=== PATIENT | female | born 1935 | race Caucasian/White ===

== ENCOUNTER 2022-12-16 15:45 | Inpatient (IN) ==
[2022-12-16 17:14] LABS: Basophils % 0.2 % (0.0-0.8); Hematocrit 43.3 VOL% (35.7-47.0); Hemoglobin 14.1 GM/DL (12.0-16.0); Immature Granulocytes % 0.4 %; Immature Granulocytes Absolute 0.02 #; Lymphocytes # 0.5 10*3/uL (1.4-4.0); Lymphocytes % 10.5 % (21.3-54.2); Mean Corpuscular HGB Conc 32.6 GM/DL (32-36); Mean Corpuscular Volume 89.3 FL (87-102); Mean Platelet Volume 10.6 FL (9.6-12.0); Monocytes # 0.5 10*3/uL (0.11-0.8); Neutrophils % 78.9 % (38.7-73.9); Platelet Count 77 T/CUMM (130-400); Red Blood Count 4.85 MC/CUMM (3.8-5.5); Red Cell Distribution Width 14.5 % (9.3-17.3); White Blood Count 4.68 T/CUMM (4-12)
[2022-12-16] MEDS ORDERED: ONDANSETRON 4 MG/2 ML VIAL IV STA (17:16)
[2022-12-16 17:38] LABS: Albumin 3.2 G/DL (3.4-5.0); Bilirubin,Total 1.5 MG/DL (0.20-1.00); Calcium 8.7 MG/DL (8.5-10.1); Osmolality,Calculated 276.7 MOS/KG (273-304); Potassium 3.3 MMOL/L (3.5-5.1); Total Protein 6.9 G/DL (6.4-8.2)
[2022-12-16] MEDS ORDERED: cefTRIAXone 1,000 MG in SODIUM CHLORIDE 0.9% 100 ML IV STA (17:41)
[2022-12-16] MEDS ORDERED: AZITHROMYCIN INJ 500 MG in SODIUM CHLORIDE 0.9% 250 ML IV STA (17:41)
[2022-12-16 18:04] LABS: INR 1.1; PT Patient Result 12.1 SECS (10.1-12.1); Partial Thromboplastin Time 30.8 SECS (23.7-32.9)
[2022-12-16 18:52] LABS: Bacteria,Urine Many /HPF (Few); Hyaline Casts,Urine 26 /LPF (0-3); Mucus,Urine Occasional /LPF (Occasional); RBC,Urine 4 /HPF (0-4); Squamous Epithelial Cell,Urine Occasional /HPF (0-10)
[2022-12-16 18:53] LABS: Bilirubin,Urine Negative (Negative); Blood, Urine Negative (Negative); Glucose,Urine (UA) Negative (Negative); Ketones,Urine Negative (Negative); Nitrite,Urine Negative (Negative); Protein,Urine Negative (Negative); Urine Appearance Clear (Clear); Urine Color Yellow (Yellow); Urine Specific Gravity 1.015 (1.001-1.035)
[2022-12-16] MEDS ORDERED: FUROSEMIDE 40 MG/4 ML VIAL IV STA ×2 (19:47→20:51)
[2022-12-16] MEDS ORDERED: POTASSIUM CHLORIDE 20 MEQ TABLET PO STA (19:47)
[2022-12-16] MEDS ORDERED: hydrALAZINE 20 MG/1 ML VIAL IV PRN (20:06)
[2022-12-16] MEDS ORDERED: ONDANSETRON 4 MG/2 ML VIAL IV PRN (20:06)
[2022-12-16] MEDS ORDERED: ACETAMINOPHEN 325 MG TABLET PO PRN (20:06)
[2022-12-16] MEDS ORDERED: ALBUTEROL 2.5 MG/3 ML NEB RESP TX PRN (20:06)
[2022-12-16] MEDS ORDERED: SIMETHICONE CHEW 125 MG TABLET PO PRN (20:06)
[2022-12-16] MEDS ORDERED: GLUCAGON 1 MG VIAL IM PRN (20:16)
[2022-12-16] MEDS ORDERED: DEXTROSE 10% 250 ML BAG IV PRN (20:16)
[2022-12-16] MEDS ORDERED: FUROSEMIDE 100 MG/10 ML VIAL ONE (21:01)
[2022-12-16 21:19] LABS: Arterial Base Excess iSTAT 3 MMOL/L (-2.5-2.5); Arterial Bicarbonate iSTAT 30.6 MMOL/L (20-26); Arterial O2 Saturation iSTAT 92 % (95-100); Arterial PCO2 iSTAT 59 MM HG (35-48); Arterial PO2 iSTAT 72 MM HG (80-95); Arterial Total CO2 iSTAT 32 MMO/L (23-27); Arterial pH iSTAT 7.321 (7.35-7.45)
[2022-12-16] MEDS: DOCUSATE SODIUM 100 MG CAPSULE PO SCH (22:32)
[2022-12-16] MEDS: LACTULOSE 20 GM/30 ML UDCUP PO SCH (22:32)
[2022-12-16] MEDS ORDERED: POTASSIUM CHLORIDE 20 MEQ TABLET PO ONE (23:00)
[2022-12-17 04:28] LABS: Arterial Base Excess iSTAT 6 MMOL/L (-2.5-2.5); Arterial Bicarbonate iSTAT 31.6 MMOL/L (20-26); Arterial O2 Saturation iSTAT 95 % (95-100); Arterial PCO2 iSTAT 51 MM HG (35-48); Arterial PO2 iSTAT 79 MM HG (80-95); Arterial Total CO2 iSTAT 33 MMO/L (23-27); Arterial pH iSTAT 7.399 (7.35-7.45)
[2022-12-17 06:33] LABS: Eosinophils % 0.2 % (0.00-10.9); Hematocrit 39.4 VOL% (35.7-47.0); Hemoglobin 12.7 GM/DL (12.0-16.0); Immature Granulocytes % 0.4 %; Immature Granulocytes Absolute 0.02 #; Lymphocytes # 0.7 10*3/uL (1.4-4.0); Lymphocytes % 13.9 % (21.3-54.2); Mean Corpuscular HGB Conc 32.2 GM/DL (32-36); Mean Corpuscular Volume 90.8 FL (87-102); Mean Platelet Volume 10.4 FL (9.6-12.0); Monocytes # 0.6 10*3/uL (0.11-0.8); Monocytes % 11.6 % (1.7-12.7); Neutrophils % 73.9 % (38.7-73.9); Red Blood Count 4.34 MC/CUMM (3.8-5.5); Red Cell Distribution Width 14.7 % (9.3-17.3); White Blood Count 5.02 T/CUMM (4-12)
[2022-12-17 06:35] LABS: Platelet Count 75 T/CUMM (130-400)
[2022-12-17 06:38] LABS: INR 1.1; PT Patient Result 12.5 SECS (10.1-12.1)
[2022-12-17 06:53] LABS: Hypochromia Slight; Microcytosis 1+; Ovalocytes Few; Platelet Estimate Decreased
[2022-12-17 07:05] LABS: Albumin 2.8 G/DL (3.4-5.0); Bilirubin,Direct 0.64 MG/DL (0.0-0.20); Bilirubin,Indirect 0.4 MG/DL (0.0-1.0); Calcium 8.3 MG/DL (8.5-10.1); Osmolality,Calculated 278.4 MOS/KG (273-304); Potassium 3.9 MMOL/L (3.5-5.1)
[2022-12-17] MEDS: INSULIN REGULAR 100 UNIT/ML SUBCUT SCH ×2 (10:11→17:33)
[2022-12-17] MEDS ORDERED: GLUCAGON 1 MG VIAL IM PRN (10:37)
[2022-12-17] MEDS ORDERED: DEXTROSE 50% 25 GM/50 ML VIAL IV PRN (10:37)
[2022-12-17] MEDS: OXYBUTYNIN XL 10 MG TABLET PO SCH (10:42)
[2022-12-17] MEDS: PANTOPRAZOLE 40 MG TABLET PO SCH (10:42)
[2022-12-17] MEDS: rOPINIRole 0.25 MG TABLET PO SCH ×2 (10:42→21:49)
[2022-12-17] MEDS: DOCUSATE SODIUM 100 MG CAPSULE PO SCH ×2 (10:42→21:49)
[2022-12-17] MEDS: DILTIAZEM 60 MG TABLET PO SCH ×2 (10:43→21:49)
[2022-12-17] MEDS: ESTRADIOL 1 MG TABLET PO SCH (10:43)
[2022-12-17] MEDS: SPIRONOLACTONE 25 MG TABLET PO SCH (10:43)
[2022-12-17] MEDS: LACTULOSE 20 GM/30 ML UDCUP PO SCH ×2 (10:43→21:49)
[2022-12-17 11:29] LABS: RBC,Peritoneal Fluid 23112 T/CUMM
[2022-12-17 15:03] LABS: Hepatitis B Core IgM Quant 0.08 Index; Hepatitis B Surface Ag Quant < 0.10 Index; Hepatitis B Surface Ag Result Non-Reactive (NonReactive); Hepatitis C Virus Ab Quant < 0.02 Index; Hepatitis C Virus Ab Result Non-Reactive (NonReactive)
[2022-12-17 16:38] LABS: Ferritin 228.6 ng/mL (8-252)
[2022-12-17] MEDS: cefTRIAXone 1,000 MG in SODIUM CHLORIDE 0.9% 100 ML IV SCH (17:30)
[2022-12-17] MEDS: FUROSEMIDE 40 MG/4 ML VIAL IV SCH (17:32)
[2022-12-17] MEDS: AZITHROMYCIN INJ 500 MG in SODIUM CHLORIDE 0.9% 250 ML IV SCH (18:03)
[2022-12-17] MEDS: ZINC OXIDE PASTE 113 GM TUBE TOP SCH (21:49)
[2022-12-18 05:42] LABS: Hematocrit 39.2 VOL% (35.7-47.0); Hemoglobin 12.6 GM/DL (12.0-16.0); Immature Granulocytes % 0.2 %; Immature Granulocytes Absolute 0.01 #; Lymphocytes # 0.7 10*3/uL (1.4-4.0); Lymphocytes % 12.3 % (21.3-54.2); Mean Corpuscular HGB Conc 32.1 GM/DL (32-36); Mean Corpuscular Volume 92.7 FL (87-102); Mean Platelet Volume 10.2 FL (9.6-12.0); Monocytes # 0.6 10*3/uL (0.11-0.8); Monocytes % 10.4 % (1.7-12.7); Neutrophils % 77.1 % (38.7-73.9); Platelet Count 71 T/CUMM (130-400); Red Blood Count 4.23 MC/CUMM (3.8-5.5); Red Cell Distribution Width 14.7 % (9.3-17.3); White Blood Count 5.28 T/CUMM (4-12)
[2022-12-18 06:02] LABS: Hypochromia Slight
[2022-12-18 06:03] LABS: Microcytosis 1+; Ovalocytes Few; Platelet Estimate Decreased
[2022-12-18 06:31] LABS: Albumin 2.6 G/DL (3.4-5.0); Bilirubin,Total 0.9 MG/DL (0.20-1.00); Calcium 8.4 MG/DL (8.5-10.1); Osmolality,Calculated 284.1 MOS/KG (273-304); Potassium 3.9 MMOL/L (3.5-5.1); Total Protein 5.8 G/DL (6.4-8.2)
[2022-12-18] MEDS: INSULIN REGULAR 100 UNIT/ML SUBCUT SCH ×2 (07:41→17:06)
[2022-12-18] MEDS: FUROSEMIDE 40 MG/4 ML VIAL IV SCH ×2 (08:15→17:12)
[2022-12-18] MEDS: ALBUTEROL 2.5 MG/3 ML NEB RESP TX SCH ×3 (09:08→20:30)
[2022-12-18] MEDS: DILTIAZEM 60 MG TABLET PO SCH ×2 (09:43→21:00)
[2022-12-18] MEDS: OXYBUTYNIN XL 10 MG TABLET PO SCH (09:43)
[2022-12-18] MEDS: SPIRONOLACTONE 25 MG TABLET PO SCH (09:43)
[2022-12-18] MEDS: ESTRADIOL 1 MG TABLET PO SCH (09:43)
[2022-12-18] MEDS: rOPINIRole 0.25 MG TABLET PO SCH ×2 (09:43→21:00)
[2022-12-18] MEDS: LACTULOSE 20 GM/30 ML UDCUP PO SCH ×2 (09:44→21:00)
[2022-12-18] MEDS: PANTOPRAZOLE 40 MG TABLET PO SCH (09:44)
[2022-12-18] MEDS: ZINC OXIDE PASTE 113 GM TUBE TOP SCH ×2 (09:44→21:02)
[2022-12-18] MEDS: DOCUSATE SODIUM 100 MG CAPSULE PO SCH ×2 (09:44→21:00)
[2022-12-18 15:26] LABS: Amylase,Body Fluid 19 U/L; Glucose,Pleural Fluid 134 MG/DL; LDH,Body Fluid 134 U/L; Total Protein,Body Fluid 2.8 G/DL; Triglycerides,Body Fluid 383 MG/DL
[2022-12-18 17:00] LABS: Lymphocytes,Pleural Fluid 95 %; Monocytes,Pleural Fluid 3 %; Neutrophils,Pleural Fluid 2 %; RBC,Pleural Fluid 61682 T/CUMM
[2022-12-18] MEDS: methylPREDNISolone SOD SUC 40 MG/1 ML VIAL IV SCH (17:08)
[2022-12-18] MEDS: cefTRIAXone 1,000 MG in SODIUM CHLORIDE 0.9% 100 ML IV SCH (17:12)
[2022-12-18] MEDS: AZITHROMYCIN INJ 500 MG in SODIUM CHLORIDE 0.9% 250 ML IV SCH (17:42)
[2022-12-19] MEDS: ALBUTEROL 2.5 MG/3 ML NEB RESP TX SCH ×4 (02:24→19:12)
[2022-12-19] MEDS: methylPREDNISolone SOD SUC 40 MG/1 ML VIAL IV SCH ×2 (05:16→17:22)
[2022-12-19 05:33] LABS: Hematocrit 38.2 VOL% (35.7-47.0); Hemoglobin 12.7 GM/DL (12.0-16.0); Immature Granulocytes % 0.4 %; Immature Granulocytes Absolute 0.02 #; Lymphocytes # 0.4 10*3/uL (1.4-4.0); Mean Corpuscular HGB Conc 33.2 GM/DL (32-36); Mean Corpuscular Volume 90.7 FL (87-102); Mean Platelet Volume 11.4 FL (9.6-12.0); Monocytes # 0.4 10*3/uL (0.11-0.8); Monocytes % 6.3 % (1.7-12.7); Neutrophils % 86.3 % (38.7-73.9); Platelet Count 73 T/CUMM (130-400); Red Blood Count 4.21 MC/CUMM (3.8-5.5); Red Cell Distribution Width 14.6 % (9.3-17.3); White Blood Count 5.57 T/CUMM (4-12)
[2022-12-19 05:54] LABS: Platelet Estimate Decreased
[2022-12-19 06:05] LABS: Albumin 2.5 G/DL (3.4-5.0); Bilirubin,Total 0.7 MG/DL (0.20-1.00); Calcium 8.2 MG/DL (8.5-10.1); Osmolality,Calculated 285.3 MOS/KG (273-304); Potassium 3.2 MMOL/L (3.5-5.1); Total Protein 5.8 G/DL (6.4-8.2)
[2022-12-19] MEDS ORDERED: POTASSIUM CHLORIDE 20 MEQ TABLET PO ONE (08:00)
[2022-12-19] MEDS: INSULIN REGULAR 100 UNIT/ML SUBCUT SCH ×2 (08:18→18:19)
[2022-12-19] MEDS: FUROSEMIDE 40 MG/4 ML VIAL IV SCH ×2 (09:03→17:22)
[2022-12-19] MEDS: DILTIAZEM 60 MG TABLET PO SCH ×2 (09:04→21:20)
[2022-12-19] MEDS: PANTOPRAZOLE 40 MG TABLET PO SCH (09:04)
[2022-12-19] MEDS: rOPINIRole 0.25 MG TABLET PO SCH ×2 (09:04→21:20)
[2022-12-19] MEDS: SPIRONOLACTONE 25 MG TABLET PO SCH (09:04)
[2022-12-19] MEDS: OXYBUTYNIN XL 10 MG TABLET PO SCH (09:04)
[2022-12-19] MEDS: DOCUSATE SODIUM 100 MG CAPSULE PO SCH ×2 (09:05→21:20)
[2022-12-19] MEDS: ESTRADIOL 1 MG TABLET PO SCH (09:05)
[2022-12-19] MEDS: LACTULOSE 20 GM/30 ML UDCUP PO SCH ×2 (09:05→21:20)
[2022-12-19] MEDS: ZINC OXIDE PASTE 113 GM TUBE TOP SCH ×2 (09:11→21:24)
[2022-12-19] MEDS: cefTRIAXone 1,000 MG in SODIUM CHLORIDE 0.9% 100 ML IV SCH (17:24)
[2022-12-19] MEDS: AZITHROMYCIN INJ 500 MG in SODIUM CHLORIDE 0.9% 250 ML IV SCH (18:24)
[2022-12-20] MEDS: ALBUTEROL 2.5 MG/3 ML NEB RESP TX SCH ×4 (00:15→19:07)
[2022-12-20 05:02] LABS: Hematocrit 38.1 VOL% (35.7-47.0); Hemoglobin 12.3 GM/DL (12.0-16.0); Immature Granulocytes % 0.6 %; Immature Granulocytes Absolute 0.05 #; Lymphocytes # 0.4 10*3/uL (1.4-4.0); Lymphocytes % 4.9 % (21.3-54.2); Mean Corpuscular HGB Conc 32.3 GM/DL (32-36); Mean Corpuscular Volume 90.1 FL (87-102); Mean Platelet Volume 10.8 FL (9.6-12.0); Monocytes # 0.5 10*3/uL (0.11-0.8); Monocytes % 5.4 % (1.7-12.7); Neutrophils % 89.1 % (38.7-73.9); Platelet Count 82 T/CUMM (130-400); Red Blood Count 4.23 MC/CUMM (3.8-5.5); Red Cell Distribution Width 14.3 % (9.3-17.3); White Blood Count 8.93 T/CUMM (4-12)
[2022-12-20] MEDS: methylPREDNISolone SOD SUC 40 MG/1 ML VIAL IV SCH (05:15)
[2022-12-20 05:17] LABS: Calcium 8.5 MG/DL (8.5-10.1); Osmolality,Calculated 286.4 MOS/KG (273-304)
[2022-12-20 06:32] LABS: Lymphocytes 7 % (20-55); Platelet Estimate Decreased; Total Cells Counted 100
[2022-12-20] MEDS ORDERED: POTASSIUM CHLORIDE 20 MEQ TABLET PO ONE ×3 (08:00→16:00)
[2022-12-20] MEDS: INSULIN REGULAR 100 UNIT/ML SUBCUT SCH ×2 (08:19→16:45)
[2022-12-20] MEDS: FUROSEMIDE 40 MG/4 ML VIAL IV SCH (08:22)
[2022-12-20] MEDS: LACTULOSE 20 GM/30 ML UDCUP PO SCH ×2 (08:23→21:14)
[2022-12-20] MEDS: OXYBUTYNIN XL 10 MG TABLET PO SCH (08:23)
[2022-12-20] MEDS: SPIRONOLACTONE 25 MG TABLET PO SCH (08:23)
[2022-12-20] MEDS: ESTRADIOL 1 MG TABLET PO SCH (08:23)
[2022-12-20] MEDS: rOPINIRole 0.25 MG TABLET PO SCH ×2 (08:23→21:14)
[2022-12-20] MEDS: PANTOPRAZOLE 40 MG TABLET PO SCH (08:23)
[2022-12-20] MEDS: DOCUSATE SODIUM 100 MG CAPSULE PO SCH ×2 (08:23→21:14)
[2022-12-20] MEDS: ZINC OXIDE PASTE 113 GM TUBE TOP SCH ×2 (08:25→21:14)
[2022-12-20] MEDS: DILTIAZEM 60 MG TABLET PO SCH ×2 (08:28→21:15)
[2022-12-20] MEDS: cefTRIAXone 1,000 MG in SODIUM CHLORIDE 0.9% 100 ML IV SCH (17:04)
[2022-12-20] MEDS: AZITHROMYCIN INJ 500 MG in SODIUM CHLORIDE 0.9% 250 ML IV SCH (17:46)
[2022-12-20] MEDS: MEGESTROL 40 MG TABLET PO SCH (21:13)
[2022-12-21] MEDS: ALBUTEROL 2.5 MG/3 ML NEB RESP TX SCH ×4 (00:13→19:24)
[2022-12-21 04:51] LABS: Basophils % 0.2 % (0.0-0.8); Hematocrit 42.1 VOL% (35.7-47.0); Hemoglobin 13.2 GM/DL (12.0-16.0); Immature Granulocytes % 0.9 %; Lymphocytes # 0.5 10*3/uL (1.4-4.0); Lymphocytes % 4.4 % (21.3-54.2); Mean Corpuscular HGB Conc 31.4 GM/DL (32-36); Mean Corpuscular Volume 91.3 FL (87-102); Mean Platelet Volume 10.9 FL (9.6-12.0); Monocytes # 0.7 10*3/uL (0.11-0.8); Monocytes % 5.7 % (1.7-12.7); Neutrophils % 88.8 % (38.7-73.9); Platelet Count 91 T/CUMM (130-400); Red Blood Count 4.61 MC/CUMM (3.8-5.5); Red Cell Distribution Width 14.3 % (9.3-17.3); White Blood Count 11.73 T/CUMM (4-12)
[2022-12-21 05:11] LABS: Lymphocytes 4 % (20-55); Platelet Estimate Decreased; Total Cells Counted 100
[2022-12-21 05:12] LABS: Albumin 2.2 G/DL (3.4-5.0); Bilirubin,Total 0.7 MG/DL (0.20-1.00); Calcium 8.4 MG/DL (8.5-10.1); Osmolality,Calculated 291.4 MOS/KG (273-304); Potassium 3.8 MMOL/L (3.5-5.1); Total Protein 5.8 G/DL (6.4-8.2)
[2022-12-21] MEDS ORDERED: methylPREDNISolone SOD SUC 40 MG/1 ML VIAL IV SCH (09:00)
[2022-12-21] MEDS ORDERED: FUROSEMIDE 40 MG/4 ML VIAL IV SCH (09:00)
[2022-12-21] MEDS: LACTULOSE 20 GM/30 ML UDCUP PO SCH ×2 (10:10→21:20)
[2022-12-21] MEDS: DOCUSATE SODIUM 100 MG CAPSULE PO SCH ×2 (10:11→21:21)
[2022-12-21] MEDS: SPIRONOLACTONE 25 MG TABLET PO SCH (10:11)
[2022-12-21] MEDS: OXYBUTYNIN XL 10 MG TABLET PO SCH (10:11)
[2022-12-21] MEDS: INSULIN REGULAR 100 UNIT/ML SUBCUT SCH ×2 (10:11→17:59)
[2022-12-21] MEDS: ESTRADIOL 1 MG TABLET PO SCH (10:12)
[2022-12-21] MEDS: MEGESTROL 40 MG TABLET PO SCH ×2 (10:12→21:21)
[2022-12-21] MEDS: rOPINIRole 0.25 MG TABLET PO SCH ×2 (10:12→21:20)
[2022-12-21] MEDS: DILTIAZEM 60 MG TABLET PO SCH ×2 (10:12→21:21)
[2022-12-21] MEDS: PANTOPRAZOLE 40 MG TABLET PO SCH (10:12)
[2022-12-21] MEDS: methylPREDNISolone SOD SUC 40 MG/1 ML VIAL IV SCH (10:12)
[2022-12-21] MEDS: FUROSEMIDE 80 MG TABLET PO SCH (10:16)
[2022-12-21] MEDS: ZINC OXIDE PASTE 113 GM TUBE TOP SCH ×2 (12:39→21:20)
[2022-12-21] MEDS: cefTRIAXone 1,000 MG in SODIUM CHLORIDE 0.9% 100 ML IV SCH (17:59)
[2022-12-21 20:06] LABS: M. Tuberculosis PCR Result Negative (Negative); M. Tuberculosis PCR Source PLEURAL FLUID
[2022-12-21] MEDS: METOPROLOL TARTRATE 25 MG TABLET PO SCH (21:21)
[2022-12-22] MEDS: ALBUTEROL 2.5 MG/3 ML NEB RESP TX SCH ×4 (00:56→19:54)
[2022-12-22 05:16] LABS: Basophils % 0.2 % (0.0-0.8); Hematocrit 42.3 VOL% (35.7-47.0); Hemoglobin 13.9 GM/DL (12.0-16.0); Immature Granulocytes % 1.3 %; Immature Granulocytes Absolute 0.25 #; Lymphocytes % 5.3 % (21.3-54.2); Mean Corpuscular HGB Conc 32.9 GM/DL (32-36); Mean Corpuscular Volume 88.7 FL (87-102); Mean Platelet Volume 10.6 FL (9.6-12.0); Monocytes # 1.1 10*3/uL (0.11-0.8); Monocytes % 5.7 % (1.7-12.7); Neutrophils % 87.5 % (38.7-73.9); Platelet Count 116 T/CUMM (130-400); Red Blood Count 4.77 MC/CUMM (3.8-5.5); Red Cell Distribution Width 14.2 % (9.3-17.3); White Blood Count 18.63 T/CUMM (4-12)
[2022-12-22 05:34] LABS: Albumin 2.2 G/DL (3.4-5.0); Bilirubin,Total 1.1 MG/DL (0.20-1.00); Calcium 8.5 MG/DL (8.5-10.1); Osmolality,Calculated 284.5 MOS/KG (273-304); Potassium 3.4 MMOL/L (3.5-5.1)
[2022-12-22] MEDS: FUROSEMIDE 80 MG TABLET PO SCH (08:53)
[2022-12-22] MEDS: ZINC OXIDE PASTE 113 GM TUBE TOP SCH ×2 (08:53→21:10)
[2022-12-22] MEDS: LACTULOSE 20 GM/30 ML UDCUP PO SCH ×2 (08:53→21:10)
[2022-12-22] MEDS: PANTOPRAZOLE 40 MG TABLET PO SCH (08:54)
[2022-12-22] MEDS: OXYBUTYNIN XL 10 MG TABLET PO SCH (08:54)
[2022-12-22] MEDS: ESTRADIOL 1 MG TABLET PO SCH (08:54)
[2022-12-22] MEDS: METOPROLOL TARTRATE 25 MG TABLET PO SCH ×2 (08:54→21:11)
[2022-12-22] MEDS: DOCUSATE SODIUM 100 MG CAPSULE PO SCH ×2 (08:54→21:10)
[2022-12-22] MEDS: SPIRONOLACTONE 50 MG TABLET PO SCH (08:54)
[2022-12-22] MEDS: MEGESTROL 40 MG TABLET PO SCH ×2 (08:54→21:11)
[2022-12-22] MEDS: rOPINIRole 0.25 MG TABLET PO SCH ×2 (08:55→21:11)
[2022-12-22] MEDS ORDERED: POTASSIUM CHLORIDE 20 MEQ TABLET PO ONE (09:00)
[2022-12-22] MEDS: methylPREDNISolone SOD SUC 40 MG/1 ML VIAL IV SCH (09:01)
[2022-12-22] MEDS: metOLazone 5 MG TABLET PO SCH (09:02)
[2022-12-22] MEDS: DILTIAZEM 60 MG TABLET PO SCH ×2 (09:02→21:11)
[2022-12-22] MEDS: INSULIN REGULAR 100 UNIT/ML SUBCUT SCH ×2 (09:05→17:01)
[2022-12-22] MEDS: cefTRIAXone 1,000 MG in SODIUM CHLORIDE 0.9% 100 ML IV SCH (17:01)
[2022-12-23] MEDS: ALBUTEROL 2.5 MG/3 ML NEB RESP TX SCH ×4 (01:05→19:35)
[2022-12-23 05:23] LABS: Basophils % 0.2 % (0.0-0.8); Eosinophils % 0.1 % (0.00-10.9); Hematocrit 41.6 VOL% (35.7-47.0); Hemoglobin 13.7 GM/DL (12.0-16.0); Immature Granulocytes % 1.2 %; Lymphocytes # 0.7 10*3/uL (1.4-4.0); Lymphocytes % 4.5 % (21.3-54.2); Mean Corpuscular HGB Conc 32.9 GM/DL (32-36); Mean Corpuscular Volume 87.9 FL (87-102); Mean Platelet Volume 10.5 FL (9.6-12.0); Monocytes # 1.1 10*3/uL (0.11-0.8); Monocytes % 7.1 % (1.7-12.7); Neutrophils % 86.9 % (38.7-73.9); Platelet Count 120 T/CUMM (130-400); Red Blood Count 4.73 MC/CUMM (3.8-5.5); Red Cell Distribution Width 14.1 % (9.3-17.3); White Blood Count 16.15 T/CUMM (4-12)
[2022-12-23 05:42] LABS: Albumin 2.2 G/DL (3.4-5.0); Osmolality,Calculated 288.4 MOS/KG (273-304); Potassium 3.3 MMOL/L (3.5-5.1)
[2022-12-23 05:54] LABS: Lymphocytes 3 % (20-55); Total Cells Counted 100
[2022-12-23 05:56] LABS: Microcytosis Slight; Ovalocytes Few
[2022-12-23 05:57] LABS: Platelet Estimate Decreased
[2022-12-23] MEDS: INSULIN REGULAR 100 UNIT/ML SUBCUT SCH ×2 (07:13→17:38)
[2022-12-23] MEDS: PANTOPRAZOLE 40 MG TABLET PO SCH (08:35)
[2022-12-23] MEDS: OXYBUTYNIN XL 10 MG TABLET PO SCH (08:35)
[2022-12-23] MEDS: rOPINIRole 0.25 MG TABLET PO SCH ×2 (08:35→20:47)
[2022-12-23] MEDS: ESTRADIOL 1 MG TABLET PO SCH (08:36)
[2022-12-23] MEDS: FUROSEMIDE 80 MG TABLET PO SCH (08:36)
[2022-12-23] MEDS: METOPROLOL TARTRATE 25 MG TABLET PO SCH ×2 (08:36→20:47)
[2022-12-23] MEDS: DOCUSATE SODIUM 100 MG CAPSULE PO SCH ×2 (08:36→20:47)
[2022-12-23] MEDS: SPIRONOLACTONE 50 MG TABLET PO SCH (08:36)
[2022-12-23] MEDS: POTASSIUM CHLORIDE 20 MEQ TABLET PO SCH (08:36)
[2022-12-23] MEDS: metOLazone 5 MG TABLET PO SCH (08:36)
[2022-12-23] MEDS: DILTIAZEM 60 MG TABLET PO SCH ×2 (08:36→20:46)
[2022-12-23] MEDS: ZINC OXIDE PASTE 113 GM TUBE TOP SCH ×2 (08:37→20:48)
[2022-12-23] MEDS: methylPREDNISolone SOD SUC 40 MG/1 ML VIAL IV SCH (08:38)
[2022-12-23] MEDS: MEGESTROL 40 MG TABLET PO SCH ×2 (08:41→20:47)
[2022-12-23] MEDS: LACTULOSE 20 GM/30 ML UDCUP PO SCH ×2 (08:42→20:47)
[2022-12-23] MEDS ORDERED: FUROSEMIDE 20 MG/2 ML VIAL IV ONE (09:12)
[2022-12-23] MEDS ORDERED: POTASSIUM CHLORIDE 20 MEQ TABLET PO ONE (09:13)
[2022-12-23] MEDS: cefTRIAXone 1,000 MG in SODIUM CHLORIDE 0.9% 100 ML IV SCH (17:38)
[2022-12-24] MEDS: ALBUTEROL 2.5 MG/3 ML NEB RESP TX SCH ×4 (01:13→19:45)
[2022-12-24 05:19] LABS: Basophils # 0.1 10*3/uL (0.0-0.2); Basophils % 0.3 % (0.0-0.8); Eosinophils # 0.1 10*3/uL (0.0-0.87); Eosinophils % 0.4 % (0.00-10.9); Hematocrit 43.6 VOL% (35.7-47.0); Hemoglobin 14.5 GM/DL (12.0-16.0); Immature Granulocytes % 1.4 %; Immature Granulocytes Absolute 0.27 #; Lymphocytes # 0.8 10*3/uL (1.4-4.0); Lymphocytes % 4.4 % (21.3-54.2); Mean Corpuscular HGB Conc 33.3 GM/DL (32-36); Mean Corpuscular Volume 88.4 FL (87-102); Mean Platelet Volume 10.8 FL (9.6-12.0); Monocytes # 1.4 10*3/uL (0.11-0.8); Monocytes % 7.6 % (1.7-12.7); Neutrophils % 85.9 % (38.7-73.9); Platelet Count 133 T/CUMM (130-400); Red Blood Count 4.93 MC/CUMM (3.8-5.5); White Blood Count 18.89 T/CUMM (4-12)
[2022-12-24 05:41] LABS: Lymphocytes 4 % (20-55); Total Cells Counted 100
[2022-12-24 05:42] LABS: Platelet Estimate Normal
[2022-12-24 05:43] LABS: Albumin 2.2 G/DL (3.4-5.0); Calcium 9.4 MG/DL (8.5-10.1); Potassium 4.1 MMOL/L (3.5-5.1); Total Protein 6.3 G/DL (6.4-8.2)
[2022-12-24] MEDS: INSULIN REGULAR 100 UNIT/ML SUBCUT SCH ×2 (07:31→16:38)
[2022-12-24] MEDS ORDERED: PHENOL 1.4% THROAT SPRAY 177 ML BOTTLE PO PRN (08:29)
[2022-12-24] MEDS: OXYBUTYNIN XL 10 MG TABLET PO SCH (08:35)
[2022-12-24] MEDS: DILTIAZEM 60 MG TABLET PO SCH ×2 (08:36→21:28)
[2022-12-24] MEDS: rOPINIRole 0.25 MG TABLET PO SCH ×2 (08:37→21:28)
[2022-12-24] MEDS: SPIRONOLACTONE 50 MG TABLET PO SCH (08:37)
[2022-12-24] MEDS: POTASSIUM CHLORIDE 20 MEQ TABLET PO SCH (08:37)
[2022-12-24] MEDS: ESTRADIOL 1 MG TABLET PO SCH (08:37)
[2022-12-24] MEDS: MEGESTROL 40 MG TABLET PO SCH ×2 (08:37→21:27)
[2022-12-24] MEDS: METOPROLOL TARTRATE 25 MG TABLET PO SCH ×2 (08:37→21:27)
[2022-12-24] MEDS: metOLazone 5 MG TABLET PO SCH (08:37)
[2022-12-24] MEDS: PANTOPRAZOLE 40 MG TABLET PO SCH (08:37)
[2022-12-24] MEDS: DOCUSATE SODIUM 100 MG CAPSULE PO SCH ×2 (08:37→21:28)
[2022-12-24] MEDS: FUROSEMIDE 80 MG TABLET PO SCH (08:38)
[2022-12-24] MEDS: methylPREDNISolone SOD SUC 40 MG/1 ML VIAL IV SCH (08:40)
[2022-12-24] MEDS: ZINC OXIDE PASTE 113 GM TUBE TOP SCH ×2 (08:43→21:29)
[2022-12-24] MEDS: LACTULOSE 20 GM/30 ML UDCUP PO SCH ×2 (08:43→21:29)
[2022-12-24] MEDS: cefTRIAXone 1,000 MG in SODIUM CHLORIDE 0.9% 100 ML IV SCH (17:21)
[2022-12-25] MEDS: ALBUTEROL 2.5 MG/3 ML NEB RESP TX SCH ×2 (00:40→07:42)
[2022-12-25] MEDS: LACTULOSE 20 GM/30 ML UDCUP PO SCH ×2 (01:56→08:44)
[2022-12-25 05:32] LABS: Basophils % 0.2 % (0.0-0.8); Eosinophils # 0.1 10*3/uL (0.0-0.87); Eosinophils % 0.7 % (0.00-10.9); Hematocrit 42.8 VOL% (35.7-47.0); Hemoglobin 14.4 GM/DL (12.0-16.0); Immature Granulocytes % 2.1 %; Immature Granulocytes Absolute 0.34 #; Mean Corpuscular HGB Conc 33.6 GM/DL (32-36); Mean Corpuscular Volume 88.1 FL (87-102); Mean Platelet Volume 11.1 FL (9.6-12.0); Monocytes # 1.4 10*3/uL (0.11-0.8); Monocytes % 8.5 % (1.7-12.7); Neutrophils % 82.5 % (38.7-73.9); Platelet Count 153 T/CUMM (130-400); Red Blood Count 4.86 MC/CUMM (3.8-5.5); Red Cell Distribution Width 14.1 % (9.3-17.3)
[2022-12-25 06:02] LABS: Albumin 2.3 G/DL (3.4-5.0); Bilirubin,Total 1.4 MG/DL (0.20-1.00); Osmolality,Calculated 282.1 MOS/KG (273-304); Potassium 3.8 MMOL/L (3.5-5.1); Total Protein 6.4 G/DL (6.4-8.2)
[2022-12-25 06:54] VITALS: BP 114/58
[2022-12-25] MEDS: INSULIN REGULAR 100 UNIT/ML SUBCUT SCH (07:30)
[2022-12-25] MEDS: ESTRADIOL 1 MG TABLET PO SCH (08:39)
[2022-12-25] MEDS: SPIRONOLACTONE 50 MG TABLET PO SCH (08:39)
[2022-12-25] MEDS: OXYBUTYNIN XL 10 MG TABLET PO SCH (08:39)
[2022-12-25] MEDS: MEGESTROL 40 MG TABLET PO SCH (08:39)
[2022-12-25] MEDS: rOPINIRole 0.25 MG TABLET PO SCH (08:40)
[2022-12-25] MEDS: METOPROLOL TARTRATE 25 MG TABLET PO SCH (08:40)
[2022-12-25] MEDS: POTASSIUM CHLORIDE 20 MEQ TABLET PO SCH (08:40)
[2022-12-25] MEDS: DILTIAZEM 60 MG TABLET PO SCH (08:40)
[2022-12-25] MEDS: DOCUSATE SODIUM 100 MG CAPSULE PO SCH (08:40)
[2022-12-25] MEDS: PANTOPRAZOLE 40 MG TABLET PO SCH (08:40)
[2022-12-25] MEDS: FUROSEMIDE 80 MG TABLET PO SCH (08:40)
[2022-12-25] MEDS: ZINC OXIDE PASTE 113 GM TUBE TOP SCH (08:43)
[2022-12-25] MEDS ORDERED: CITALOPRAM 20 MG TABLET PO SCH (09:00)
== END 2022-12-25 12:10 | disposition home health service (06) | DRG 432 ==
LOC: N.ED 15:45 → SUATTDRO 20:06 → N.3E 20:06
PROVIDERS: ADMIT Hospitalist; ATTEND Internal Medicine